=== PATIENT | male | born 1960 | race Caucasian/White ===

== ENCOUNTER → 2019-02-08 | Outpatient (CLI) | payer BC ==
[2019-02-08 20:14] LABS: Microalb/Creat Ratio UR, Rand 9.655 mg/g (0.000-30.000); Microalbumin, Random Urine 11.2 mg/L (0.000-20.000)
== END | disposition home or self-care (01) ==
LOC: LAB SHORT 17:30 → LAB EV 17:30
PROVIDERS: Family Medicine
DX: R03.0 Elevated blood-pressure reading, without diagnosis of hypertension (principal)
CPT/HCPCS: 82043; 82570